=== PATIENT | male | born 1940 | race Caucasian/White ===

== ENCOUNTER 2016-12-05 08:26 | Day surgery (SDC) | payer OTHER, SELFPAY ==
[~2016-12-05] VITALS: Ht 167.6 cm; Wt 148.3 kg
[~2016-12-05 08:26] MED LIST: ACET1TAB17 PO; ACETAMINOPHEN 325 MG TAB PO PRN; ALLO15TA PO; AMIO200T PO; ASPI325T PO; ATOR1TAB21 PO; ATOR40TA75 PO; BISA10SU4 PR; BSS with VANC/TOB/EPI for EYE CASES IR ONE; CYCLOPENTOLATE 2% OPHTH SOLN 2ML BTL OS ONE; DOCU100C16 PO; GLIM2TA PO; GLIM4TAB PO; GLUC1000 PO; HEALON DUET (HEALON 10MG/ML 0.55ML & HEALON ENDOCOAT 30MG/ML 0.85ML) As Ordered ONE; INSUDET SC; INSULANT SC; LEVO150T7 PO; LIDOCAINE 1% SDV 5 ML VIAL As Ordered ONE; LIDOCAINE 3.5 % 1ML OPHTH TOPICAL GEL OU ONE; LISI10TA4 PO; METF10004 PO; METO25TAB PO; MIDAZOLAM INJ 2 MG/2 ML VIAL (J2250) As Ordered ONE; MOXIFLOXACIN IN BSS 0.25MG/0.25ML INTRACAMERAL INJ (OR EYE ONLY)(J2280) As Ordered ONE; OFLOXACIN 0.3 % (OCUFLOX) OPTH SOL 5ML OS ONE; PANT40TA2 PO; PHENYLEPHRINE 2.5% OPHTH SOL 2ML OS ONE; POVIDONE-IODINE 5% OPHTH PREP SOL 30ML As Ordered ONE; PROPARACAINE 0.5% OPHTH SOL 15ML OS PRN; RA A PO; SENN8.6T63 PO; TRIAMCINOLONE PRES FR 40 MG/ML 1ML(TRIESENCE)(OR EYE ONLY)(J3300 PER 1MG) As Ordered ONE; TROPICAMIDE 1% OPHTH SOLN 2ML OS ONE; ZYLO300T4 PO; fentaNYL 100 MCG/2 ML INJECTION (J3010) As Ordered ONE
[2016-12-05] MEDS ORDERED: D5W/0.2% SODIUM CHLORIDE 250 ML IV ONE (09:15)
[2016-12-05] MEDS ORDERED: AcetaZOLAMIDE 500 MG ER CAP As Ordered ONE (11:23)
[2016-12-05 11:25] VITALS: BP 135/62
[2016-12-05] MEDS ORDERED: AcetaZOLAMIDE 500 MG ER CAP PO ONE (11:30)
[2016-12-05] MEDS ORDERED: TRIMETHOBENZAMIDE 300 MG CAP PO PRN (11:30)
[2016-12-05] MEDS ORDERED: KETOROLAC 0.5% OPHTH SOLN OS ONE (11:30)
[2016-12-05] MEDS ORDERED: HEALON DUET (HEALON 10MG/ML 0.55ML & HEALON ENDOCOAT 30MG/ML 0.85ML) As Ordered ONE (14:13)
== END 2016-12-05 11:56 | disposition home or self-care (01) ==
LOC: M SDC 08:26
PROVIDERS: ATTEND Ophthalmology
DX: H26.9 Unspecified cataract (principal); I10 Essential (primary) hypertension; I48.91 Unspecified atrial fibrillation; E78.00 Pure hypercholesterolemia, unspecified; E11.9 Type 2 diabetes mellitus without complications; M10.9 Gout, unspecified; R29.898 Other symptoms and signs involving the musculoskeletal system; M12.9 Arthropathy, unspecified; I69.959 Hemiplegia and hemiparesis following unspecified cerebrovascular disease affecting unspecified side; Z88.8 Allergy status to other drugs, medicaments and biological substances; Z79.899 Other long term (current) drug therapy; Z79.84 Long term (current) use of oral hypoglycemic drugs
CPT/HCPCS: 66984; J2250; J2280; J3010; J3300; V2632

== ENCOUNTER 2016-12-13 07:52 | Day surgery (SDC) | payer OTHER, SELFPAY ==
[~2016-12-13 07:52] MED LIST changes: +CYCLOPENTOLATE 2% OPHTH SOLN 2ML BTL OD ONE; -CYCLOPENTOLATE 2% OPHTH SOLN 2ML BTL OS ONE; +LIDOCAINE 2% W/EPIN INJ 20ML **PRES FREE As Ordered ONE; -MIDAZOLAM INJ 2 MG/2 ML VIAL (J2250) As Ordered ONE; +OFLOXACIN 0.3 % (OCUFLOX) OPTH SOL 5ML OD ONE; -OFLOXACIN 0.3 % (OCUFLOX) OPTH SOL 5ML OS ONE; +PHENYLEPHRINE 2.5% OPHTH SOL 2ML OD ONE; -PHENYLEPHRINE 2.5% OPHTH SOL 2ML OS ONE; +PROPARACAINE 0.5% OPHTH SOL 15ML OD PRN; -PROPARACAINE 0.5% OPHTH SOL 15ML OS PRN; +TROPICAMIDE 1% OPHTH SOLN 2ML OD ONE; -TROPICAMIDE 1% OPHTH SOLN 2ML OS ONE; -fentaNYL 100 MCG/2 ML INJECTION (J3010) As Ordered ONE
[2016-12-13] MEDS ORDERED: LR 1,000 ML IV ONE (08:00)
[2016-12-13] MEDS ORDERED: fentaNYL 100 MCG/2 ML INJECTION (J3010) As Ordered ONE (10:30)
[2016-12-13 10:55] VITALS: BP 103/70
[2016-12-13] MEDS ORDERED: AcetaZOLAMIDE 500 MG ER CAP PO ONE (11:00)
[2016-12-13] MEDS ORDERED: KETOROLAC 0.5% OPHTH SOLN OD ONE (11:00)
[2016-12-13] MEDS ORDERED: TRIMETHOBENZAMIDE 300 MG CAP PO PRN (11:00)
== END 2016-12-13 11:19 | disposition home or self-care (01) ==
LOC: M SDC 07:52
PROVIDERS: ATTEND Ophthalmology
DX: H26.9 Unspecified cataract (principal); I10 Essential (primary) hypertension; E78.00 Pure hypercholesterolemia, unspecified; E11.9 Type 2 diabetes mellitus without complications; M10.9 Gout, unspecified; E03.9 Hypothyroidism, unspecified; R29.898 Other symptoms and signs involving the musculoskeletal system; M12.9 Arthropathy, unspecified; Z88.8 Allergy status to other drugs, medicaments and biological substances; Z79.899 Other long term (current) drug therapy; Z79.84 Long term (current) use of oral hypoglycemic drugs; Z86.73 Personal history of transient ischemic attack (TIA), and cerebral infarction without residual deficits
CPT/HCPCS: 66984; J2280; J3010; J3300; V2632

== ENCOUNTER → 2018-09-15 | Outpatient (REF) ==
[~2018-09-15] MED LIST changes: -ACET1TAB17 PO; +ACET1TAB55 PO; -ACETAMINOPHEN 325 MG TAB PO PRN; -ALLO15TA PO; +ALLO300T2 PO; +ASPI-1 PO; -ASPI325T PO; -BSS with VANC/TOB/EPI for EYE CASES IR ONE; -CYCLOPENTOLATE 2% OPHTH SOLN 2ML BTL OD ONE; -GLIM2TA PO; +GLIM2TAB29 PO; -HEALON DUET (HEALON 10MG/ML 0.55ML & HEALON ENDOCOAT 30MG/ML 0.85ML) As Ordered ONE; -LIDOCAINE 1% SDV 5 ML VIAL As Ordered ONE; -LIDOCAINE 2% W/EPIN INJ 20ML **PRES FREE As Ordered ONE; -LIDOCAINE 3.5 % 1ML OPHTH TOPICAL GEL OU ONE; +METO1TAB63 PO; -METO25TAB PO; -MOXIFLOXACIN IN BSS 0.25MG/0.25ML INTRACAMERAL INJ (OR EYE ONLY)(J2280) As Ordered ONE; -OFLOXACIN 0.3 % (OCUFLOX) OPTH SOL 5ML OD ONE; -PANT40TA2 PO; +PANT40TA3 PO; -PHENYLEPHRINE 2.5% OPHTH SOL 2ML OD ONE; -POVIDONE-IODINE 5% OPHTH PREP SOL 30ML As Ordered ONE; -PROPARACAINE 0.5% OPHTH SOL 15ML OD PRN; -TRIAMCINOLONE PRES FR 40 MG/ML 1ML(TRIESENCE)(OR EYE ONLY)(J3300 PER 1MG) As Ordered ONE; -TROPICAMIDE 1% OPHTH SOLN 2ML OD ONE; -ZYLO300T4 PO; +ZYLO300T6 PO
[2018-09-15 14:39] LABS: ALBUMIN 3.2 GM/DL (3.2-5.2); BILIRUBIN,TOTAL 0.7 MG/DL (0.2-1.0); CALCIUM LEVEL 8.3 MG/DL (8.8-10.2); CREATININE FOR GFR 1.54 MG/DL (0.70-1.30); GLOMERULAR FILTRATION RATE 47.1 (>42); POTASSIUM SERUM 4.9 MEQ/L (3.5-5.1); TOTAL PROTEIN 6.3 GM/DL (6.4-8.2)
== END ==
LOC: M LAB REF 11:08
DX: Z00.00 Encounter for general adult medical examination without abnormal findings (principal)